=== PATIENT | female | born 1965 | race American Indian/Alaskan Native ===

== ENCOUNTER 2018-05-03 15:09 | Emergency (ER) | payer SELFPAY ==
[~2018-05-03 15:09] MED LIST: ISOVUE-370 76%-LOCM 1 ML ONE
[2018-05-03] MEDS ORDERED: Morphine 4 MG/ML VIAL ONE ×2 (15:36→18:10)
[2018-05-03] MEDS ORDERED: Ondansetron PF 4 MG/2 ML Vial ONE ×2 (15:36→18:10)
--- NOTE | 2018-05-03 15:45 | RAD ---
PORTABLE CHEST: Date: 05/03/18 PROVIDED CLINICAL HISTORY: Syncope. FINDINGS: Cardiac silhouette appears prominent, likely at least partially on the basis of portable technique. N o focal consolidation, pleural fluid, or pneumothorax apparent. IMPRESSION: No evidence for an acute cardiopulmonary process. POS: [facility]
[2018-05-03 16:12] LABS: #Lymphocytes 0.8 thou/uL (1.20-3.40); #Monocytes 0.4 thou/uL (0.11-0.59); #Neutrophils 7.5 thou/uL (1.40-6.50); %Basophils 0.3 % (0.0-1.0); %Eosinophils 0.4 % (0.0-10.0); %Lymphocytes 9.6 % (21.0-51.0); %Monocytes 4.1 % (0.0-10.0); %Neutrophils 85.6 % (42.0-75.0); Hemoglobin 13.9 g/dL (12.0-16.0); Mean Corpuscular HGB CONC 32.5 g/dL (32.0-36.0); Mean Corpuscular Hemoglobin 29.3 pg (27.0-31.0); Mean Corpuscular Volume 90.3 fL (78.0-98.0); Mean Platelet Volume 9.8 fL (7.4-10.4); Platelet Count 198 thou/uL (130-400); RBC Distribution Width 11.7 % (11.5-14.5); Red Blood Cell (RBC) Count 4.74 mill/uL (4.20-5.40); White Blood Cell (WBC) Count 8.8 thou/uL (4.8-10.8)
[2018-05-03 16:32] LABS: ALT (SGPT) 13 U/L (8-55); AST (SGOT) 18 U/L (5-34); Albumin 4.3 g/dL (3.5-5.0); Alkaline Phosphatase 77 U/L (40-150); Anion Gap 13 mmol/L (10-20); BUN (Urea Nitrogen) 18 mg/dL (9.8-20.1); Bilirubin, Total 0.8 mg/dL (0.2-1.2); Calc. Creatinine Clearance 0 mL/min (70-130); Calcium 9.5 mg/dL (7.8-10.44); Carbon Dioxide 28 mmol/L (22-29); Chloride 103 mmol/L (98-107); Estimated GFR-MDRD 76; Globulin 2.7 g/dL (2.4-3.5); Glucose 97 mg/dL (70-105); Lipase 17 U/L (8-78); Potassium 3.9 mmol/L (3.5-5.1); Sodium 140 mmol/L (136-145)
[2018-05-03 17:23] LABS: Bilirubin Negative (Negative); Blood, Urine Negative (Negative); Clarity TURBID (Clear); Glucose, Urine (Dipstick) Negative (Negative); Leukocyte Small (Negative); Nitrite Negative (Negative); Protein, Urine (Dipstick) Negative (Neg-Trace); Specific Gravity, Urine 1.011 (1.002-1.036); Urobilinogen 0.2 mg/dL (0.2-1.0); pH, Urine 7.5 (5.0-9.0)
[2018-05-03 17:27] LABS: Pregnancy Test - Urine (BHCG) Negative (Negative); Pregu Control Background? CLEAR/WHITE (CLR/WHITE); Pregu Control Bar Appear? YES (CONTROL BAR); Specific Gravity 1.011 (1.002-1.036)
[2018-05-03 17:28] LABS: Bacteria/HPF None Seen HPF (None Seen); Hyaline Casts/LPF 0-3 HYALINE CAST LPF (0-3 Hyaline); Pathc Cast-AUWi Flag 0.29 (0-2.49); RBC/HPF 0-3 HPF (0-3); Squamous Epithelial 0-3 HPF (0-3); WBC/HPF 0-3 HPF (0-3)
--- NOTE | 2018-05-03 19:07 | CT ---
CT OF ABDOMEN AND PELVIS PERFORMED WITH INTRAVENOUS CONTRAST ENHANCEMENT: History: Abdominal pain, dizziness, pain in periumbilical region. FINDINGS: The lung bases show some subsegmental atelectatic change. The liver, spleen, and pancreas regions appear unremarkable. The gallbladder is mildly distended but no pericholecystic inflammatory change. Right and left adrenal glands and right and left kidneys are normal in appearance. No significant per iaortic or mesenteric adenopathy is seen. There is fluid filled distention of the stomach. There is s ome fluid within nondilated small bowel loops. I cannot exclude this representing a mild enteritis. CT PELVIS PERFORMED WITH INTRAVENOUS CONTRAST ENHANCEMENT: The appendix is difficult to identify but I see no appendiceal inflammatory process. There is no sign ificant pelvic lymphadenopathy or mass. IMPRESSION: 1. Moderate fluid filled distention of the stomach with some minimal fluid within the small bowel loo p. I cannot exclude this as a gastric enteritis. Clinical correlation would be recommended. 2. Mild gallbladder distention without any inflammatory process. 3. No definitive CT evidence for appendicitis. The appendix is not well visualized and there is no in flammatory process in this region. POS: [facility]
== END 2018-05-03 18:48 | disposition home or self-care (01) ==
LOC: ERS 15:09
DX: R10.13 Epigastric pain (principal); R55 Syncope and collapse; R11.2 Nausea with vomiting, unspecified
CPT/HCPCS: 36415; 71045; 74177; 80053; 81003; 81015; 81025; 83690; 84443; 84484; 85025; 93005; 94760; 96361; 96374; 96375; 96376; J2270; J2405; Q9966